=== PATIENT | male | born 1955 | race African-American/Black ===

== ENCOUNTER 2021-08-11 17:05 | Outpatient (CLI) | payer MEDICARE, MEDICAID, SELFPAY ==
--- NOTE | ~2021-08-11 | XR_ITS ---
EXAMINATION: XR chest 2V DATE: 08/11/2021 17:26 INDICATION: Cough. TECHNIQUE: PA and lateral views of the chest were obtained. COMPARISON: Chest radiograph dated 01/27/2006 FINDINGS: Lungs are clear with no focal airspace opacities, pulmonary edema, pleural effusion or pneumothorax. Mild cardiomegaly. Stenting of the tortuous descending thoracic aorta beginning at the arch and exten ding to just above the thoracic hiatus. IMPRESSION: 1. No acute cardiopulmonary disease. 2. Cardiac megaly. 3. Stenting of the tendon thoracic aorta. Reviewed, dictated and finalized at location A.
== END 2021-08-11 17:06 | disposition home or self-care (01) ==
LOC: ANHLAB 17:10
PROVIDERS: PCP Family Medicine; Visit Provider Family Medicine
DX: R05 Cough (principal); Z86.16 Personal history of COVID-19; I51.7 Cardiomegaly; Z95.5 Presence of coronary angioplasty implant and graft
CPT/HCPCS: 71046

== ENCOUNTER 2021-08-20 14:00 | Outpatient (CLI) | payer MEDICARE, MEDICAID, SELFPAY | END 2021-08-20 14:01 | disposition home or self-care (01) | LOC: ANHLAB 14:04 | PROVIDERS: PCP Family Medicine; Visit Provider Physician Assistant | DX: R41.0 Disorientation, unspecified (principal) | CPT/HCPCS: 87086 ==

== ENCOUNTER 2021-12-07 15:46 | Outpatient (CLI) | payer MEDICARE, SELFPAY ==
[2021-12-07 16:23] LABS: Basophils Percent Auto 0.4 % (0.2-1.2); Eosinophils Absolute Auto 0.1 K/mm3 (0-0.3); Eosinophils Percent Auto 1.5 % (0-4.4); Hematocrit 31.8 % (42.0-52.0); Hemoglobin 10.3 g/dL (14.0-18.0); Immature Granulocyte Absolute 0.02 K/mm3 (0.00-0.031); Immature Granulocyte Percent A 0.3 % (0-0.5); Lymphocytes Absolute Auto 1.39 K/mm3 (0.9-3.2); Lymphocytes Percent Auto 18.5 % (18.3-44.2); Mean Corpuscular HGB Conc 32.4 g/dl (32-36); Mean Corpuscular Hemoglobin 28.1 pg (26-34); Mean Corpuscular Volume 86.9 fl (80-100); Mean Platelet Volume 10.2 fl (7.4-10.4); Monocytes Absolute Auto 0.6 K/mm3 (0.1-0.6); Monocytes Percent Auto 8.1 % (2.6-8.5); Neutrophils Absolute Auto 5.4 K/mm3 (1.3-6.7); Neutrophils Percent Auto 71.2 % (45.5-73.1); Platelet Count Result 203 k/mm3 (150-375); Red Blood Count 3.66 M/mm3 (4.6-6.20); Red Cell Distribution Width 14.1 % (11.5-14.5); White Blood Count 7.5 K/mm3 (4.5-10.0)
[2021-12-07 19:20] LABS: Hemoglobin A1C 4.5 % (<5.7)
[2021-12-07 19:28] LABS: Alanine Aminotransferase 21 U/L (4-50); Albumin Level 4.1 g/dL (3.5-5.1); Alkaline Phosphatase 153 U/L (38-126); Anion Gap 7 mmol/L (8-16); Aspartate Amino Transferase 26 U/L (17-59); Bilirubin,Total 0.4 mg/dL (0.2-1.3); Blood Urea Nitrogen 32 mg/dL (9-20); Carbon Dioxide 27 mmol/L (22-30); Chloride 105 mmol/L (98-107); Cholesterol 118 mg/dL (0-200); Estimated Glomerular Filt Rate 36; Glucose 94 mg/dL (65-110); HDL Direct 53 mg/dL; Potassium 4.7 mmol/L (3.4-5.0); Sodium 139 mmol/L (137-145); Triglycerides 68 mg/dL (<150)
[2021-12-07 19:39] LABS: LDL Cholesterol Direct 31 mg/dL
[2021-12-07 19:58] LABS: Prostate Specific Antigen 4.4 ng/mL (< OR = 4.0)
== END 2021-12-07 15:47 | disposition home or self-care (01) ==
LOC: ANHLAB 15:50
PROVIDERS: PCP Family Medicine; Visit Provider Nurse Practitioner Family
DX: I12.9 Hypertensive chronic kidney disease with stage 1 through stage 4 chronic kidney disease, or unspecified chronic kidney disease (principal); N18.9 Chronic kidney disease, unspecified; R35.0 Frequency of micturition; R73.01 Impaired fasting glucose; Z12.5 Encounter for screening for malignant neoplasm of prostate; E78.2 Mixed hyperlipidemia
CPT/HCPCS: 36415; 80053; 80061; 83036; 84153; 84443; 85025; G0103

== ENCOUNTER → 2021-12-19 00:10 | Outpatient (CLI) | payer MEDICARE, SELFPAY ==
[2021-12-19 13:20] LABS: SARS-CoV-2 RNA PCR Negative
== END ==
PROVIDERS: PCP Family Medicine; Visit Provider Surgery
DX: Z01.812 Encounter for preprocedural laboratory examination (principal); Z20.822 Contact with and (suspected) exposure to COVID-19
CPT/HCPCS: C9803; U0003; U0005

== ENCOUNTER 2021-12-22 00:59 | Day surgery (SDC) | payer MEDICARE, SELFPAY ==
--- NOTE | 2021-12-21 09:43 | PC.NURSE ---
Report to the Outpatient Waiting Room, entrance under the green pavilion located off [facility], at time _0630_ on date _12/22/21__. OR Time: _0830_. - You and your visitor will be asked a series of questions to screen for COVID 19 for your protection. - A mask is required within the hospital. - NO visitors are allowed at this time. -Preoperative COVID Testing Requirements: COVID TEST COMPLETED 12/19/21) No COVID Test needed if: (proof is required; if not received patient will have Rapid Test prior to entry) - Patient has received COVID Vaccine at least 14 days prior to procedure date or - Patient has positive COVID test result within last 90 days of surgery date. COVID Test needed if above criteria is not met If not COVID vaccinated a COVID test must be conducted within 72 hours of surgery and patient is asked to isolate self from time of testing until procedure. You will go to the [facility] for your COVID testing. The [facility] site is located at the corner of [address] [facility]. You will only be called if COVID results are positive and your surgeon may reschedule your elective surgery date. Patients may have clear liquids (water, carbonated beverages, clear teas, apple juice) until 3 hours prior to surgery with a maximum of 20 ounces. (0730 AM) - No food from midnight until time of surgery - Infants may have breast milk until 4 hours before surgery, infant formula 6 hours prior to surgery. - Children will be allowed to drink immediately following surgery. If applicable, please bring a bottle or sippy cup to assist with drinking. Juice, water, soda, and popsicles are readily available. For infants on formula, please bring formula the day of surgery. Pacifiers are allowed. Take the following medications with a SIP of water the morning of surgery: _IRBESARTAN, VERAPAMIL___ Medications to discontinue per physician N/A Date to take last dose Please no make-up, nail pashto, hairspray, perfume, deodorant, or body powder the day of surgery. No jewelry (including any body piercings) or valuables the day of surgery, leave them at home. Please take a shower or bath the night before, or the morning of, surgery with an antibacterial soap. Wear comfortable, loose fitting clothing. Children are encouraged to wear pajamas. - Jewelry must be removed prior to entering the operating room. Rings and piercings that are not removed may be cut off. - The hospital will not accept responsibility for valuables. - Please leave all valuables, including medications, at home the day of surgery. If you are going home after surgery, a licensed subway train driver must drive you home. - NO public transportation without another adult. - We recommend that an adult stay with you for 24 hours following discharge. - We also recommend that you do not drive, make important decision, drink alcoholic beverages, or take any drugs that were not prescribed by your health care provider for at least 24 hours after your discharge time. For Pediatric surgeries, we recommend two adults accompany the child home (only one inside the building at this time). Follow any additional instructions given to you from your surgeon. - ANGY SHOWER AM OF SURGERY Telephone instructions given to __PT'S DAUGHTER (YANI) and asked if any additional questions and then verbalized understanding. Patient advised to call surgeon office or pre surgery nurse liaison [phone] if any additional questions.
[2021-12-22] VITALS (22 sets, daily range): BP systolic 80–204; BP diastolic 47–100; PULSE 53–95; RESP 12–17; TEMP 36.1–36.8; O2SAT 96–100
--- NOTE | 2021-12-22 05:54 | ECG_ITS ---
Measurements Intervals [place] Rate: 72 P: 51 WI: 201 QRS: -14 QRSD: 89 T: -21 QT: 388 QTc: 427 Interpretive Statements SINUS RHYTHM VOLTAGE CRITERIA FOR LVH MINIMAL Q WAVES- HIGH LATERAL LEADS BORDERLINE ST-T WAVE ABNORMALITY- INF/LAT LEADS BORDERLINE ECG Electronically Signed On 12-22-2021 8:06:28 AUTOMOTIVE ENGINEERING TEACHER by Sami Montes De Oca D.O.
[2021-12-22] MEDS: ACETAMINOPHEN 500 MG TABLET 1000 MG PO (06:48)
[2021-12-22] MEDS: LACTATED RINGERS 1,000 ML 30 ML IV CONT ×3 (07:20→13:28)
[2021-12-22] MEDS: KETOROLAC 15 MG/ML VIAL (*BKC) IV PUSH (07:21)
[2021-12-22] MEDS: hydrALAZINE HCL 20 MG/ML VIAL 5 MG IV PUSH (07:22)
--- NOTE | 2021-12-22 07:25 | WPDHPUPDATE1 ---
History and Physical Update Update Date/Time: 12/22/21 07:25 History and Physical has been reviewed, including an updated exam of the patient. There are NO changes in the patient's condition. Risks, benefits, and alternatives have been discussed and questions answered. Patient agrees to proceed with procedure.
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
[2021-12-22 07:37] LABS: Partial Thromboplastin Time 39.1 SECONDS (22.3-36.8)
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
[2021-12-22] MEDS: ceFAZolin 2 GM/D5W 50 ML 2 GM/50 ML BAG IVPB (08:26)
[2021-12-22] MEDS: BUPIVACAINE/EPINEPHRINE 0.5% 30 ML VIAL INFILTRATE (09:24)
--- NOTE | 2021-12-22 12:07 | W.PM.PROC2 ---
Procedure Note - Detailed Date of Procedure 12/22/21 Pre-op Diagnosis right inguinal hernia, ventral hernia Post-op Diagnosis other (Incarcerated ventral hernia, Reducible indirect right inguinal hernia) Procedure Performed 1. Open incarcerated ventral hernia repair with Ventralex ST Hernia Patch 2. Laparoscopic right inguinal hernia repair with 3DMax Mid mesh, da Pippa assisted Surgeon Abilio Soares, DO Anesthesia general and local (0.5% bupivacaine with epinephrine) Indications this is a 66-year-old man who presents with a right groin bulge that has progressively enlarged over the last couple years. He was also found to have a bulge at his umbilicus on exam. He has a large right inguinal hernia extending down into his scrotum and this appears to be containing bowel. It is reducible with manual palpation with the patient lying down. Discussions were made with the patient about treatment options and decision was made to proceed with open ventral hernia repair with mesh and laparoscopic right inguinal hernia repair with mesh, de Pippa assisted. Findings The laparoscopic portion of the procedure was completed 1st. I inspected the abdomen laparoscopically through a left upper quadrant incision. The patient was found to have an incarcerated ventral hernia right near the umbilicus. There is actually 2 hernias in this location both containing omentum. There was a 1 cm hernia right at the umbilicus incarcerated with omentum and another 1 cm ventral hernia just superior to the umbilicus containing omentum. The omentum had to be reduced laparoscopically before placing the periumbilical port. I placed the supraumbilical port right through the supraumbilical ventral hernia. A large right indirect inguinal hernia was identified. There is a very large hernia sac extending all the way into the scrotum. I reduced most of the hernia sac but the hernia sac was very thin and tore very easily with traction. A robotic transabdominal preperitoneal approach was utilized. Once the peritoneum was dissected far enough posteriorly, I then placed a large right Bard 3DMax mid mesh. The mesh was secured using 3-0 Vicryl simple interrupted sutures at Romero's ligament, the superior medial edge, and superior lateral edge. Once I closed the peritoneum, there did still appear to be a large hole in the peritoneum where the hernia sac was dissected. This hole was also closed using a 3-0 V lock running absorbable suture. After completing the laparoscopic portion, I then made a 5 cm curvilinear incision just superior to the umbilicus. The ventral and umbilical hernias were only by about a 5 mm rim of fascia. This fascia was transected with electrocautery so that I could place a wide enough mesh to overlap both hernias. I then placed a [address] hernia patch. This was secured at the 4 corners using 0 Ethibond U-stitch trans fascial sutures. The fascia was then closed vertically over the mesh using 0 Ethibond [id number] sutures. The hernia sac was sent to the lab for pathology. Description of Procedure Procedure as well as risks, benefits, and alternatives were discussed with the patient. Written consent was obtained and placed in chart prior to procedure. Patient was brought back to surgical suite. He was placed supine on operating table. Time-out was done to confirm patient and procedure. he was then intubated by Anesthesia Department. his abdomen was prepped and draped in sterile fashion using chlorhexidine prep. 0.5% bupivacaine with epinephrine was infiltrated at each location for incision. An 8 mm incision was made in the left lateral abdomen, and a 5 mm Optiview trocar was advanced through the abdominal layers under direct visualization. Once inside the abdominal cavity, carbon dioxide insufflation was used to create a pneumoperitoneum. A camera was inserted and the abdominal cavity was inspected. The patient was placed in slight Trendelenbu
--- NOTE | 2021-12-22 18:13 | SUR.PHASEII ---
DR PETTIT ORDERED PT TO GO HOME WITH RADHA AND HIS OFFICE WILL CALL TUESDAY TO HAVE IT REMOVED AT OFFICE.
--- NOTE | 2021-12-22 18:15 | SUR.PHASEII ---
1600, BLADDERSCAN >100ML. BLADDER SCANNED AT 1730 = 141ML
== END 2021-12-22 18:20 | disposition home or self-care (01) ==
PROVIDERS: Anesthesiology; PCP Family Medicine; Visit Provider Surgery
PROC: 8E0Y4CZ Robotic Assisted Procedure of Lower Extremity, Percutaneous Endoscopic Approach (ICD-10-PCS; CPT 49650; principal; 2021-12-22 08:30)
PROC: 0WQF0ZZ Repair Abdominal Wall, Open Approach (ICD-10-PCS; CPT 49650; 2021-12-22 08:30)
DX: K40.90 Unilateral inguinal hernia, without obstruction or gangrene, not specified as recurrent (principal); K43.6 Other and unspecified ventral hernia with obstruction, without gangrene; I12.9 Hypertensive chronic kidney disease with stage 1 through stage 4 chronic kidney disease, or unspecified chronic kidney disease; N18.9 Chronic kidney disease, unspecified; G40.909 Epilepsy, unspecified, not intractable, without status epilepticus; Z87.11 Personal history of peptic ulcer disease; Z86.73 Personal history of transient ischemic attack (TIA), and cerebral infarction without residual deficits; Z79.82 Long term (current) use of aspirin; Z87.891 Personal history of nicotine dependence
CPT/HCPCS: 49650; 49561; 49568; S2900; 36415; 85610; 85730; 86850; 86900; 86901; 88302; 93005; A9270; C1781; C9803; J0360; J0690; J1170; J1885; J2250; J2405; J2704; J2710; J3010; J7030; J7120; U0003; U0005

== ENCOUNTER 2021-12-26 11:57 | Inpatient (IN) | payer MEDICARE, SELFPAY ==
[2021-12-26] VITALS (33 sets, daily range): BP systolic 141–201; BP diastolic 77–117; PULSE 89–108; RESP 12–21; TEMP 36.7–37; O2SAT 92–100; BMI 29.0
--- NOTE | ~2021-12-26 | XR_ITS ---
EXAMINATION: XR abdomen NG/feed tube insert EXAM DATE: 12/26/2021 16:34 INDICATION: Nasogastric tube placement. Hernia surgery 2 days ago. TECHNIQUE: Frontal projection(s) of the abdomen for interpretation. There is no prior study for amrit kumar. FINDINGS: Feeding tube tip and side-port project over left upper quadrant, expected location. There are multiple loops of air-filled and dilated small bowel, small bowel obstruction versus postoperativ e ileus. Stented thoracic aorta. No evidence of free intraperitoneal gas on this upright projection. IMPRESSION: 1. Feeding tube in position. 2. Severely distended air-filled jejunum, obstruction versus postoperative ileus. Reviewed, dictated and finalized at location G. LE HOME MECHANIC IMPRESSION: 1. Feeding tube in position. 2. Severely distended air-filled jejunum, obstruction versus postoperative ile us.
--- NOTE | ~2021-12-26 | XR_ITS ---
EXAMINATION: XR abdomen obstructive series EXAM DATE: 12/29/2021 09:37 INDICATION: Small bowel obstruction, recent double hernia surgery. Follow-up. TECHNIQUE: Frontal upright projection of the upper abdomen, frontal projection of the lower abdomen f or interpretation. Comparison is made to prior examination from 12/28/2021. FINDINGS: Significant improvement in previously seen distended air-filled small bowel, postoperative ileus or small bowel obstruction. Small to moderate amount of colonic gas is present. Thoracic aorti c stent. No free intraperitoneal gas. IMPRESSION: Near normalization of dilated small bowel, postoperative ileus or obstruction. Reviewed, dictated and finalized at location B. BONDER
--- NOTE | ~2021-12-26 | XR_ITS ---
XR abdomen obstructive series 12/27/2021 08:14 Indication: Follow-up ileus versus partial small bowel obstruction Procedure: Supine and upright views of abdomen Comparison: 12/26/2021 Findings: NG tube in the stomach. There is an endovascular stent in the thoracic aorta. There is dila angel small bowel which may represent ileus or partial obstruction. There is gas in the colon. No free air. Impression: 1: Stable dilated small bowel in the upper abdomen which may represent ileus or partial obstruction. Reviewed, dictated and finalized at location A. [employer] SAL[employer] EXECUTIVE Impression: 1: Stable dilated small bowel in the upper abdomen which may represent ileus or partial obstruction.
--- NOTE | ~2021-12-26 | CT_ITS ---
EXAMINATION: CT abdomen pelvis wo con DATE: 12/26/2021 13:17 INDICATION: Hernia surgery 2 days ago. TECHNIQUE: Computed tomography (CT) of the abdomen and pelvis was performed without intravenous contr ast. The dose-length product was 1145.69 mGy-cm. Automated exposure control and iterative reconstruct ion technique were employed. COMPARISON: CT dated 10/03/2007. FINDINGS: Lung bases are unremarkable. There is a pericardial effusion. No significant pleural effusi on. There is extensive subcutaneous edema anterior abdominal wall with subcutaneous gas, consistent w ith recent surgery. Trace free fluid and free air in the abdomen also likely postoperative. There is fluid-filled and gas-filled distention of the stomach and small bowel, likely ileus. There is fluid a nd stranding in the right inguinal canal, consistent with hernia. Mild osteoarthritis of the hips. Th ere is a lower thoracic aortic endovascular stent. There is a suprarenal abdominal aortic aneurysm me asuring 5.6 x 5.2 cm. There is bilateral renal atrophy. There is a left renal cyst. There is a liver cyst. There is splenic calcified granulomas. There is a left adrenal adenoma measuring 2.8 cm. There is a Gonzalez catheter in the bladder. IMPRESSION: 1. Significantly distended fluid-filled stomach and small bowel, most likely ileus versus partial obs truction. No definite transition site. 2: Right inguinal hernia containing fluid and fat. 3: Postoperative changes in the anterior abdominal wall and abdomen. 4: Suprarenal abdominal aortic aneurysm measuring 5.6 x 5.2 cm with endovascular stent in the lower t horacic aorta. Reviewed, dictated and finalized at location A. E RIDER IMPRESSION: 1. Significantly distended fluid-filled stomach and small bowel, most likely il eus versus partial obstruction. No definite transition site. 2: Right inguinal hernia containing fluid and fat. 3: Postoperative changes in the anterior abdominal wall and abdomen. 4: Suprarenal abdominal aortic aneurysm measuring 5.6 x 5.2 cm with endovascula r stent in the lower thoracic aorta.
--- NOTE | ~2021-12-26 | XR_ITS ---
EXAMINATION: XR abdomen NG/feed tube insert DATE: 12/28/2021 21:14 INDICATION: Nasogastric tube placement. TECHNIQUE: An upright view of the abdomen on 2 radiographs was obtained. COMPARISON: Abdomen radiographs 12/27/2021, CT abdomen and pelvis 12/26/2021 FINDINGS: The lower abdomen is excluded. There are multiple dilated loops of small bowel. There is a stent graft in descending thoracic aorta. The nasogastric tube tip is in the neck. IMPRESSION: 1. Nasogastric tube tip in the neck. 2. Dilated small bowel, consistent with small bowel obstruction. Reviewed, dictated and finalized at location E. TAL EVALUATOR
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
[2021-12-26 12:46] LABS: Basophils Percent Auto 0.2 % (0.2-1.2); Eosinophils Percent Auto 0.1 % (0-4.4); Hematocrit 26.2 % (42.0-52.0); Hemoglobin 8.4 g/dL (14.0-18.0); Immature Granulocyte Absolute 0.07 K/mm3 (0.00-0.031); Immature Granulocyte Percent A 0.6 % (0-0.5); Lymphocytes Absolute Auto 0.64 K/mm3 (0.9-3.2); Lymphocytes Percent Auto 5.2 % (18.3-44.2); Mean Corpuscular HGB Conc 32.1 g/dl (32-36); Mean Corpuscular Hemoglobin 28.5 pg (26-34); Mean Corpuscular Volume 88.8 fl (80-100); Mean Platelet Volume 10.2 fl (7.4-10.4); Monocytes Absolute Auto 0.9 K/mm3 (0.1-0.6); Monocytes Percent Auto 7.6 % (2.6-8.5); Neutrophils Absolute Auto 10.6 K/mm3 (1.3-6.7); Neutrophils Percent Auto 86.3 % (45.5-73.1); Platelet Count Result 283 k/mm3 (150-375); Red Blood Count 2.95 M/mm3 (4.6-6.20); Red Cell Distribution Width 13.6 % (11.5-14.5); White Blood Count 12.3 K/mm3 (4.5-10.0)
[2021-12-26 12:54] LABS: Lactic Acid Reflex 1.2 mmol/L (0.7-2.1)
[2021-12-26 12:55] LABS: Alanine Aminotransferase 13 U/L (4-50); Alkaline Phosphatase 129 U/L (38-126); Anion Gap 7 mmol/L (8-16); Aspartate Amino Transferase 27 U/L (17-59); Blood Urea Nitrogen 52 mg/dL (9-20); Calcium 9.4 mg/dL (8.4-10.2); Carbon Dioxide 30 mmol/L (22-30); Chloride 99 mmol/L (98-107); Estimated CRCL calculation 26 ml/min; Estimated Glomerular Filt Rate 24; Glucose 154 mg/dL (65-110); Lipase 73 U/L (23-300); Potassium 4.1 mmol/L (3.4-5.0); Sodium 136 mmol/L (137-145)
[2021-12-26] MEDS: LACTATED RINGERS 1,000 ML 999 ML IV CONT (12:58)
[2021-12-26] MEDS: ONDANSETRON INJ 4 MG/2 ML VIAL IV PUSH (12:59)
[2021-12-26] MEDS: PROMETHAZINE HCL 25 MG/ML AMPUL 12.5 MG IV PUSH (13:42)
[2021-12-26] MEDS: SODIUM CHLORIDE 0.9% IV 50 ML 150 ML (13:47)
--- NOTE | 2021-12-26 14:23 | ECG_ITS ---
Measurements Intervals [place] Rate: 99 P: 40 [place]: 169 QRS: 6 QRSD: 93 T: 52 QT: 337 QTc: 434 Interpretive Statements SINUS RHYTHM NORMAL ECG Electronically Signed On 12-26-2021 18:13:49 CORE DRILLER by Sami Montes De Oca D.O.
--- NOTE | 2021-12-26 15:18 | PC.NURSE ---
Dr Cannon here to assess patient
[2021-12-26] MEDS: LACTATED RINGERS 1,000 ML 125 ML IV CONT ×2 (15:45→22:07)
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
[2021-12-26 16:35] LABS: SARS-CoV-2 RNA PCR Negative
[2021-12-26 16:43] LABS: Add Urine Microscopic? YES; Appearance Urine Clear (Clear); Bilirubin Urine Negative (Negative); Blood Urine 2+ (Negative); Color Urine Amber (Yellow); Glucose Urine UA Negative (Negative); Ketones Urine Negative (Negative); Leukocyte Esterase Ur Negative LEU/UL (Negative); Mucus Urine Few /lpf; Nitrate Urine Negative (Negative); Protein Urine 3+ mg/dL (Negative); RBC Urine 21-50 /hpf (0-2); Specific Grav Ur 1.024 (1.001-1.035); Squamous Epithelial Cell Urine Occasional /hpf (Few); Urobilinogen Urine Negative mg/dL (<2.0)
--- NOTE | 2021-12-26 18:05 | ADMGEN ---
This patient, Ulices Willingham Jr., was admitted to [facility] Surg Room 316-01. Patient/family oriented to hospital policies and general routines including ID bracelet, bed and alarms, visiting hours, pain management, procedures, bathroom and other care routines, personal items, smoking policy, room service/diet, and visiting hours. Information on how to activate the Rapid Response Team has been discussed. Patient/Family are encouraged to report perceived risks to care and to ask questions if they do not understand what they are told or what they should do.
[2021-12-27] VITALS (12 sets, daily range): BP systolic 161–178; BP diastolic 78–87; PULSE 84–95; RESP 14–20; TEMP 36.4–37.7; O2SAT 92–100
[2021-12-27 00:01] LABS: Hematocrit 23.4 % (42.0-52.0); Hemoglobin 7.6 g/dL (14.0-18.0)
[2021-12-27 00:11] LABS: Anion Gap 3 mmol/L (8-16); Blood Urea Nitrogen 54 mg/dL (9-20); Calcium 8.8 mg/dL (8.4-10.2); Carbon Dioxide 34 mmol/L (22-30); Chloride 101 mmol/L (98-107); Estimated CRCL calculation 25 ml/min; Estimated Glomerular Filt Rate 27; Glucose 113 mg/dL (65-110); Potassium 3.9 mmol/L (3.4-5.0); Sodium 138 mmol/L (137-145)
[2021-12-27] MEDS: PANTOPRAZOLE SODIUM IV 40 MG VIAL IV PUSH ×3 (01:31→22:25)
[2021-12-27 01:40] LABS: Folic Acid 10.7 ng/mL (2.76->20)
[2021-12-27] MEDS: LACTATED RINGERS 1,000 ML 125 ML IV CONT (05:19)
[2021-12-27 06:49] LABS: Basophils Percent Auto 0.3 % (0.2-1.2); Eosinophils Absolute Auto 0.1 K/mm3 (0-0.3); Eosinophils Percent Auto 1.6 % (0-4.4); Hematocrit 22.7 % (42.0-52.0); Hemoglobin 7.2 g/dL (14.0-18.0); Immature Granulocyte Absolute 0.04 K/mm3 (0.00-0.031); Immature Granulocyte Percent A 0.6 % (0-0.5); Lymphocytes Absolute Auto 0.66 K/mm3 (0.9-3.2); Lymphocytes Percent Auto 9.4 % (18.3-44.2); Mean Corpuscular HGB Conc 31.7 g/dl (32-36); Mean Corpuscular Hemoglobin 28.3 pg (26-34); Mean Corpuscular Volume 89.4 fl (80-100); Monocytes Absolute Auto 0.8 K/mm3 (0.1-0.6); Monocytes Percent Auto 11.7 % (2.6-8.5); Neutrophils Absolute Auto 5.4 K/mm3 (1.3-6.7); Neutrophils Percent Auto 76.4 % (45.5-73.1); Platelet Count Result 184 k/mm3 (150-375); Red Blood Count 2.54 M/mm3 (4.6-6.20); Red Cell Distribution Width 13.8 % (11.5-14.5)
[2021-12-27 07:09] LABS: Alanine Aminotransferase 10 U/L (4-50); Albumin Level 3.2 g/dL (3.5-5.1); Alkaline Phosphatase 92 U/L (38-126); Anion Gap 5 mmol/L (8-16); Aspartate Amino Transferase 19 U/L (17-59); Blood Urea Nitrogen 54 mg/dL (9-20); Calcium 8.5 mg/dL (8.4-10.2); Carbon Dioxide 32 mmol/L (22-30); Chloride 103 mmol/L (98-107); Estimated CRCL calculation 27 ml/min; Estimated Glomerular Filt Rate 30; Glucose 103 mg/dL (65-110); Magnesium 2.3 mg/dL (1.6-2.3); Potassium 3.7 mmol/L (3.4-5.0); Sodium 140 mmol/L (137-145)
[2021-12-27 07:17] LABS: Iron 21 ug/dL (49-181)
[2021-12-27 07:27] LABS: Percent Iron Saturation 11 % (20-50)
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
[2021-12-27] MEDS: hydrALAZINE HCL 20 MG/ML VIAL 10 MG IV PUSH ×2 (09:12→16:01)
--- NOTE | 2021-12-27 09:30 | PM.IMPN ---
Progress Note: A&P Assessment and Plan (1) Partial small bowel obstruction: Code(s): K56.600 - Partial intestinal obstruction, unspecified as to cause Status: Acute Assessment and Plan: Partial small-bowel obstruction versus ileus. Nearly 1.5 L of fluid was yielded upon insertion of the NG tube. Management per primary service. (2) Normocytic anemia: Code(s): D64.9 - Anemia, unspecified Status: Acute Assessment and Plan: Hemoglobin is nearly 2 g lower than what it was last week. Check iron studies, gastric fluid for occult blood, and trend H&H. given history of peptic ulcers, will start IV Protonix b.i.d. (3) Acute on chronic kidney failure: Code(s): N17.9 - Acute kidney failure, unspecified; N18.9 - Chronic kidney disease, unspecified Status: Acute Assessment and Plan: Secondary to dehydration from poor intake and vomiting. He is being cautiously hydrated with close monitoring of volume status. (4) Hypertension: Code(s): I10 - Essential (primary) hypertension Status: Chronic Assessment and Plan: Blood pressures were reviewed and they have been running in the 180s to 190 systolic, likely due to pain. They have improved quite a bit since the NG tube was inserted. As he is NPO will add hydralazine p.r.n. Additional Plan 12/27/2021 . Hemoglobin dropped from 8.6 to 7.2. Will transfuse 2 units. Blood pressure is stable on current medication. Will continue to monitor hemoglobin electrolytes and blood pressure Surgery evaluation noted.. Subjective Date/time seen: 12/27/21 09:30 Patient was seen during the morning rounds today. NG tube has blood tinged secretion. Mild abdominal pain. No shortness of or chest pain Review of Systems Review of Systems: All systems reviewed & are unremarkable except as noted in HPI and below (the history and physical examination.) Exam Narrative: General: Moderately ill-appearing gentleman in the semi-Don position. Weight: 94.5 kg. BMI: 29.1. HEENT: PERRL, EOMI. Sclerae anicteric. Conjunctiva mildly injected. NG tube in the right naris draining opaque, greenish-brown fluid. Tacky mucous membranes. Neck: Supple. Respiratory: Lungs are clear to auscultation bilaterally. Cardiovascular: Regular rate and rhythm with S1-S2. Gastrointestinal: Abdomen is distended and tender to palpation diffusely throughout the abdomen. No voluntary guarding or rebound tenderness. Bowel sounds are quiet. Surgical incisions are well approximated without evidence of infection. NG tube connected to suction Skin: Warm and dry. No rash or lesions on limited exam. Extremities: No cyanosis, clubbing, or edema. Radial and pedal pulses intact. Neurological: Alert. Cranial nerves 2-12 grossly intact. No gross focal deficits to casual conversation. Psychiatric: Appropriate mood and affect. Objective Data Vital Signs Vital Signs: Vital Signs - 24 hr 12/26/21 12:24 12/26/21 12:33 12/26/21 12:45 Temperature 36.7 C Pulse Rate 108 H 103 H 100 Respiratory Rate 19 18 18 Blood Pressure 182/91 H Pulse Oximetry 99 98 98 12/26/21 12:46 12/26/21 13:46 12/26/21 14:13 Temperature Pulse Rate 104 H 102 H Respiratory Rate 16 15 Blood Pressure 160/106 H 141/85 H Pulse Oximetry 98 12/26/21 14:15 12/26/21 14:17 12/26/21 14:30 Temperature Pulse Rate 103 H 101 H 101 H Respiratory Rate 15 15 14 Blood Pressure 170/102 H Pulse Oximetry 12/26/21 14:31 12/26/21 14:45 12/26/21 14:46 Temperature Pulse Rate 102 H 99 99 Respiratory Rate 14 14 13 Blood Pressure 186/112 H 190/113 H Pulse Oximetry 94 12/26/21 15:00 12/26/21 15:02 12/26/21 15:15 Temperature Pulse Rate 101 H 102 H 105 H Respiratory Rate 16 19 21 H Blood Pressure 201/117 H Pulse Oximetry 100 12/26/21 15:17 12/26/21 15:30 12/26/21 15:31 Temperature Pulse Rate 107 H 102 H 101 H Respiratory Rate 19 16 16 Bloo
[2021-12-27] MEDS: SODIUM CHLORIDE 0.9% IV 250 ML 30 ML IV CONT (12:13)
[2021-12-27] MEDS: TUBING, BLOOD PLUM PUMP TUBING 1 EACH XX (12:14)
--- NOTE | 2021-12-27 16:15 | PC.NURSE ---
notified of low grade temp. Orders given for IV Tylenol. Also notified of higher B/P and need to give hydralazine. NNO given. Pt resting with NGT to LIS. Offers no complaints at this time.
[2021-12-27 16:46] LABS: Hematocrit 28.5 % (42.0-52.0); Hemoglobin 9.1 g/dL (14.0-18.0)
[2021-12-27 17:11] LABS: Gastric Negative Control Negative; Gastric Positive Control Positive; Occult Blood Gastric Fluid Positive; pH Gastric Fluid 2 (1-8)
[2021-12-27] MEDS: FUROSEMIDE INJ 40 MG/4 ML VIAL IV PUSH (22:21)
[2021-12-27] MEDS: LACTATED RINGERS 1,000 ML 85 ML IV CONT (22:34)
--- NOTE | 2021-12-27 22:56 | PM.PNGS ---
Progress Note: A&P Assessment and Plan (1) Ileus, postoperative: Onset Date: ~12/25/21 Code(s): K91.89 - Other postprocedural complications and disorders of digestive system; K56.7 - Ileus, unspecified Status: Acute Assessment and Plan: This is the main reason for the patient's readmission. May also be somewhat constipated as he states he has not had a bowel movement since surgery. A six-pack the patient went home but did move much. He also had urinary retention postoperatively and has a Gonzalez catheter in place. (2) Hypertension: Onset Date: Unknown Code(s): I10 - Essential (primary) hypertension Status: Chronic Assessment and Plan: Continue current medications (appreciate hospitalist help and converting these to IV form). (3) Acute on chronic kidney failure: Code(s): N17.9 - Acute kidney failure, unspecified; N18.9 - Chronic kidney disease, unspecified Status: Acute (4) Normocytic anemia: Code(s): D64.9 - Anemia, unspecified Status: Acute Assessment and Plan: It appears patient had a Hb. of 10 prior to his hernia surgery & has now is dropped some. Hemoccult of the gastric fluid to be sent off this afternoon.( not sent last leyla even though ordered and NG in place Still awaiting a stool for ability to do Hemoccult of the stool. (5) History of CVA (cerebrovascular accident): Onset Date: Unknown Code(s): Z86.73 - Personal history of transient ischemic attack (TIA), and cerebral infarction without residual deficits Status: Acute (6) Postoperative urinary retention: Onset Date: ~12/2000 Code(s): N99.89 - Other postprocedural complications and disorders of genitourinary system; R33.8 - Other retention of urine Status: Acute Assessment and Plan: Continue Gonzalez catheter for this and good I&O while we rehydrate him. (7) Hematuria detected by chemical testing: Code(s): R31.9 - Hematuria, unspecified Status: Acute Subjective Subjective Date/Time Seen: 12/27/21 15:56 patient resting comfortably in bed when I entered the room. NG tube still in place. Patient denied much abdominal pain. Review of Systems Review of Systems: All systems reviewed & are unremarkable except as noted in HPI and below Constitutional: Constitutional: Reports as per HPI, Denies chills and Denies fever(s) Cardiovascular: Cardiovascular: Denies chest pain and Denies dyspnea Respiratory: Respiratory: Reports no additional respiratory complaints and Denies dyspnea Gastrointestinal: Gastrointestinal: Reports as per HPI, Reports abdominal pain (minimal), Denies bloating, Reports change in bowel habits ( Patient has not had a bowel movement since surgery.) and Reports GI cramping Musculoskeletal: Musculoskeletal: Reports no additional musculoskeletal complaints Neurologic: Denies memory loss Psychiatric: Psychiatric: Denies anxiety and Denies memory loss Exam Const: General: no acute distress, alert, awake and lethargic Nutritional Appearance: obese Orientation/consciousness: oriented to person, oriented to place and oriented to time Resp: Auscultation: clear to auscultation bilaterally GI: Inspection: incision (clean and dry with surgical glue in place) GI Palp: Yes Soft to palpation, No Tenderness to palpation present (GI) and Yes Other GI palpation findings present (rounded) Other: No bulging or significant tenderness in the right groin. Objective Data Vital Signs Vital Signs: Vital Signs - 24 hr 12/27/21 06:00 12/27/21 08:00 12/27/21 12:04 Temperature 36.4 C L 37.2 C Pulse Rate 87 87 90 Respiratory Rate 18 18 18 Blood Pressure 176/83 H 167/82 H Pulse Oximetry 99 99 95 12/27/21 12:19 12/27/21 13:19 12/27/21 14:00 Temperature 36.8 C 37.3 C 36.7 C Pulse Rate 88 90 87 Respiratory Rate 18 20 14 Blood Pressure 161/80 H 162/80 H 171/81 H Pulse Oximetry 97 96 93 12/27/21 14:19
[2021-12-27 23:49] LABS: Hemoglobin 9.3 g/dL (14.0-18.0)
[2021-12-28] MEDS: MAGNESIUM HYDROXIDE SUSP 30 ML UDC FEED TUBE (01:27)
[2021-12-28 05:29] VITALS: BP 153/88; PULSE 85; RESP 16; TEMP 36.8; O2SAT 97
[2021-12-28 06:56] LABS: Hematocrit 28.2 % (42.0-52.0); Hemoglobin 9.4 g/dL (14.0-18.0); Mean Corpuscular HGB Conc 33.3 g/dl (32-36); Mean Corpuscular Hemoglobin 28.7 pg (26-34); Mean Corpuscular Volume 86.2 fl (80-100); Mean Platelet Volume 10.2 fl (7.4-10.4); Platelet Count Result 187 k/mm3 (150-375); Red Blood Count 3.27 M/mm3 (4.6-6.20); Red Cell Distribution Width 13.6 % (11.5-14.5); White Blood Count 8.6 K/mm3 (4.5-10.0)
[2021-12-28 07:09] LABS: Alanine Aminotransferase 12 U/L (4-50); Albumin Level 3.3 g/dL (3.5-5.1); Alkaline Phosphatase 92 U/L (38-126); Anion Gap 7 mmol/L (8-16); Aspartate Amino Transferase 34 U/L (17-59); Bilirubin,Total 1.9 mg/dL (0.2-1.3); Blood Urea Nitrogen 51 mg/dL (9-20); Calcium 8.3 mg/dL (8.4-10.2); Carbon Dioxide 31 mmol/L (22-30); Chloride 103 mmol/L (98-107); Estimated CRCL calculation 30 ml/min; Estimated Glomerular Filt Rate 34; Glucose 101 mg/dL (65-110); Potassium 3.6 mmol/L (3.4-5.0); Sodium 141 mmol/L (137-145)
[2021-12-28] MEDS: PANTOPRAZOLE SODIUM IV 40 MG VIAL IV PUSH ×2 (09:02→20:19)
[2021-12-28] MEDS: LACTATED RINGERS 1,000 ML 60 ML IV CONT ×2 (09:02→21:27)
--- NOTE | 2021-12-28 10:24 | PM.IMPN ---
Progress Note: A&P Assessment and Plan (1) Partial small bowel obstruction: Code(s): K56.600 - Partial intestinal obstruction, unspecified as to cause Status: Acute Assessment and Plan: Partial small-bowel obstruction versus ileus. Nearly 1.5 L of fluid was yielded upon insertion of the NG tube. Management per primary General surgery (2) Normocytic anemia: Onset Date: Unknown Code(s): D64.9 - Anemia, unspecified Status: Acute Assessment and Plan: Hemoglobin is nearly 2 g lower than what it was last week. hemoglobin went as low to 7.2 yesterday and he was given 2 units of PRBCs. His gastric occult blood was positive. We are pending a stool occult blood testing. B12 and folic acid were normal. % saturation was low at 11%, ferritin was elevated to 184. Appears to be anemia of chronic disease which could be related to his kidney dysfunction but with a low % saturation he could be slightly iron deficient as well. continue PPI twice daily. Continue monitoring H&H given the 2 units today. If he continues to trend down may need to get GI Consultation. (3) Acute on chronic kidney failure: Code(s): N17.9 - Acute kidney failure, unspecified; N18.9 - Chronic kidney disease, unspecified Status: Acute Assessment and Plan: Secondary to dehydration from poor intake and vomiting. Creatinine is 2.3 today and his creatinine that was checked on November showed a creatinine at 2.2. He may be close to his baseline at this time. He is being cautiously hydrated with close monitoring of volume status. (4) Hypertension: Onset Date: Unknown Code(s): I10 - Essential (primary) hypertension Status: Chronic Assessment and Plan: Blood pressures 170-150 on review. We ordered IV Hydralazine as needed for systolic >165 or diastolic >100 Continue monitoring while NG in place. Time Spent With Patient Time with patient: 25 - 35 minutes Subjective Date/time seen: 12/28/21 10:24 Interval history: date of service 12/28/2021: patient reports feeling slightly better today. He is passing minimal gas. He has not had a bowel movement. He does report any abdominal pain at this time. Denies nausea or vomiting. denies any chest pain, shortness of breath, cough, leg swelling, calf pain, or any other symptoms at this time. Review of Systems Review of Systems: All systems reviewed & are unremarkable except as noted in HPI and below (the history and physical examination.) Exam Narrative: General: 66 year-old man laying flat in bed with NG tube in place suctioning green/ brown material out of his NG. Appears comfortable. In no acute distress. Skin: No jaundice or cyanosis. Good skin turgor. Neck: Supple. Respiratory: Lungs are clear to auscultation bilaterally. No bony chest wall tenderness. Cardiovascular: The heart has a regular rate and rhythm without murmur. Lower extremities: No lower extremity edema. Distal pulses are easily palpated. No calf tenderness to palpation. Gastrointestinal: Diminished bowel sounds auscultated. The abdomen is tender to palpation, distended. Psychiatric: Lucid and oriented. Memory intact. Neurologic: No focal deficits. Speech is clear. No facial drooping. Objective Data Vital Signs Vital Signs: Vital Signs - 24 hr 12/27/21 12:04 12/27/21 12:19 12/27/21 13:19 Temperature 98.9 F 98.2 F 99.1 F Pulse Rate 90 88 90 Respiratory Rate 18 18 20 Blood Pressure 167/82 H 161/80 H 162/80 H Pulse Oximetry 95 97 96 12/27/21 14:00 12/27/21 14:19 12/27/21 18:02 Temperature 98.0 F 99.1 F 99.4 F Pulse Rate 87 88 93 Respiratory Rate 14 18 20 Blood Pressure 171/81 H 178/80 H 170/87 H Pulse Oximetry 93 98 92 12/27/21 18:20 12/27/21 19:20 12/27/21 21:39 Temperature 99.8 F H 99.1 F 99.8 F H Pulse Rate 95 87 84 Respiratory Rate 20 20 17 Blood Pressure 167/84 H 172/78 H 176/82 H Pulse Oximetry 98 100 96
--- NOTE | 2021-12-28 11:55 | PM.PNGS ---
Progress Note: A&P Assessment and Plan (1) Ileus, postoperative: Onset Date: ~12/25/21 Code(s): K91.89 - Other postprocedural complications and disorders of digestive system; K56.7 - Ileus, unspecified Status: Acute Assessment and Plan: Slowly showing signs of improvement. Will give dulcolax suppository today. NG out once bowels are moving. (2) Postoperative urinary retention: Onset Date: ~12/2000 Code(s): N99.89 - Other postprocedural complications and disorders of genitourinary system; R33.8 - Other retention of urine Status: Acute Assessment and Plan: Remove Gonzalez today (3) Acute on chronic kidney failure: Code(s): N17.9 - Acute kidney failure, unspecified; N18.9 - Chronic kidney disease, unspecified Status: Acute (4) Normocytic anemia: Onset Date: Unknown Code(s): D64.9 - Anemia, unspecified Status: Acute Assessment and Plan: No sign of internal bleeding on CT and minimal blood loss with surgery. Likely mostly chronic. Ruling out other sources of acute bleeding. Subjective Subjective Date/Time Seen: 12/28/21 11:55 Interval history: Passing flatus. Wants Gonzalez removed. No significant abdominal tenderness. Not ambulating much yet. Exam GI: Inspection: non-distended and incision (intact with glue) GI Palp: Yes Soft to palpation, No Tenderness to palpation present (GI) and No Guarding due to palpation present (GI) Auscultation: normal bowel sounds Objective Data Vital Signs Vital Signs: Vital Signs - 24 hr 12/27/21 12:04 12/27/21 12:19 12/27/21 13:19 Temperature 37.2 C 36.8 C 37.3 C Pulse Rate 90 88 90 Respiratory Rate 18 18 20 Blood Pressure 167/82 H 161/80 H 162/80 H Pulse Oximetry 95 97 96 12/27/21 14:00 12/27/21 14:19 12/27/21 18:02 Temperature 36.7 C 37.3 C 37.4 C Pulse Rate 87 88 93 Respiratory Rate 14 18 20 Blood Pressure 171/81 H 178/80 H 170/87 H Pulse Oximetry 93 98 92 12/27/21 18:20 12/27/21 19:20 12/27/21 21:39 Temperature 37.7 C H 37.3 C 37.7 C H Pulse Rate 95 87 84 Respiratory Rate 20 20 17 Blood Pressure 167/84 H 172/78 H 176/82 H Pulse Oximetry 98 100 96 12/27/21 21:50 12/28/21 05:29 Temperature 36.8 C Pulse Rate 91 85 Respiratory Rate 16 Blood Pressure 153/88 H Pulse Oximetry 94 97 Intake/Output Intake/Output: Intake & Output 12/25/21 12/26/21 12/27/21 12/28/21 23:59 23:59 23:59 23:59 Intake Total 2050 2700 1000 Output Total 2400 2150 1875 Balance -350 550 -875 Meds/Results Medications: Active Medications Generic Name Dose Route Start Last Admin Trade Name Freq PRN Reason Stop Dose Admin Benzocaine 1 lozenge 12/27/21 23:35 Benzocaine/Menthol (*Bkc) 18 Ea Lozenge PO PRN PRN Sore Throat Bisacodyl 10 mg 12/27/21 23:35 Bisacodyl 10 Mg Suppository RECTAL QAM PRN Constipation Bisacodyl 10 mg 12/28/21 11:53 Bisacodyl 10 Mg Suppository RECTAL 12/28/21 11:54 ONCE ONE Hydralazine HCl 10 mg 12/26/21 23:32 12/27/21 16:01 Hydralazine Hcl 20 Mg/Ml Vial IV PUSH 10 mg Q6H PRN Administration SBP > 165 or DBP > 105 Hydromorphone HCl 0.5 mg 12/26/21 15:06 Hydromorphone Hcl Inj (*Crx) 1 Mg/Ml Syr IV PUSH Q4H PRN Pain Rated 7-10 Lactated Ringer's 1,000 mls @ 60 mls/hr 12/26/21 15:10 12/28/21 09:02 Lr - Lactated Ringers Iv IV CONT 60 mls/hr .[id number] GEM Administration Ondansetron HCl 4 mg 12/26/21 15:06 Ondansetron Inj 4 Mg/2 Ml Vial IV PUSH Q4H PRN Nausea Pantoprazole Sodium 40 mg 12/26/21 23:35 12/28/21 09:02 Pantoprazole Sodium Iv 40 Mg Vial IV PUSH 40 mg Q12HR GEM Administration Radiology Results: ITS Impressions Abdomen/Pelvis CT 12/26/21 13:37 IMPRESSION: 1. Significantly distended fluid-filled stomach and small bowel, most likely ileus versus partial obstruction. No definite transition site. 2: Right inguinal hernia containing fluid and fa
[2021-12-28 13:03] VITALS: BMI 29.4
[2021-12-28 14:00] VITALS: BP 183/91; PULSE 112; RESP 20; TEMP 36.7; O2SAT 95
[2021-12-28] MEDS: hydrALAZINE HCL 20 MG/ML VIAL 10 MG IV PUSH (14:06)
--- NOTE | 2021-12-28 21:41 | PC.NURSE ---
Was assisting patient to walk to the bathroom and noticed patient pulling on NG tube. NG tube seemed to not be in place. Called Dr. Lyman and she stated to order chest xray. Chest xray showed NG tube coiled in throat. I removed NG tube and called Dr. Lyman again. She stated to order KUB for the morning, leave patient NPO and to leave NG tube out for now unless patient has nausea or pain. Patient has nbo signs or symptoms of distress.
[2021-12-28 22:00] VITALS: BP 171/73; PULSE 97; RESP 18; TEMP 37.1; O2SAT 98
[2021-12-29 04:59] LABS: IFOB Positive Control Positive; Immunochemical Fecal Occult Bl Negative (N)
[2021-12-29 05:40] VITALS: BP 160/83; PULSE 83; RESP 18; TEMP 36.9; O2SAT 96
[2021-12-29 07:33] LABS: Hematocrit 27.2 % (42.0-52.0); Hemoglobin 8.9 g/dL (14.0-18.0); Mean Corpuscular HGB Conc 32.7 g/dl (32-36); Mean Corpuscular Hemoglobin 28.7 pg (26-34); Mean Corpuscular Volume 87.7 fl (80-100); Mean Platelet Volume 10.7 fl (7.4-10.4); Platelet Count Result 198 k/mm3 (150-375); Red Cell Distribution Width 14.3 % (11.5-14.5); White Blood Count 9.1 K/mm3 (4.5-10.0)
[2021-12-29 07:46] LABS: Alanine Aminotransferase 10 U/L (4-50); Albumin Level 3.1 g/dL (3.5-5.1); Alkaline Phosphatase 93 U/L (38-126); Anion Gap 3 mmol/L (8-16); Aspartate Amino Transferase 23 U/L (17-59); Bilirubin,Total 2.6 mg/dL (0.2-1.3); Blood Urea Nitrogen 47 mg/dL (9-20); Calcium 8.4 mg/dL (8.4-10.2); Carbon Dioxide 31 mmol/L (22-30); Chloride 107 mmol/L (98-107); Estimated CRCL calculation 33 ml/min; Estimated Glomerular Filt Rate 38; Glucose 102 mg/dL (65-110); Magnesium 2.4 mg/dL (1.6-2.3); Potassium 3.6 mmol/L (3.4-5.0); Sodium 141 mmol/L (137-145)
--- NOTE | 2021-12-29 08:55 | PM.PNGS ---
Progress Note: A&P Assessment and Plan (1) Ileus, postoperative: Onset Date: ~12/25/21 Code(s): K91.89 - Other postprocedural complications and disorders of digestive system; K56.7 - Ileus, unspecified Status: Acute Assessment and Plan: Bowels moving. Start clear liquids and advance as tolerated. Possibly home later today or tomorrow. (2) Postoperative urinary retention: Onset Date: ~12/2000 Code(s): N99.89 - Other postprocedural complications and disorders of genitourinary system; R33.8 - Other retention of urine Status: Acute (3) Acute on chronic kidney failure: Code(s): N17.9 - Acute kidney failure, unspecified; N18.9 - Chronic kidney disease, unspecified Status: Acute Subjective Subjective Date/Time Seen: 12/29/21 08:55 Interval history: Bowels moving, urinating without difficulty. No abdominal pain or nausea. Exam GI: Inspection: non-distended and incision (intact with glue) GI Palp: Yes Soft to palpation, No Tenderness to palpation present (GI) and No Guarding due to palpation present (GI) Auscultation: normal bowel sounds Objective Data Vital Signs Vital Signs: Vital Signs - 24 hr 12/28/21 14:00 12/28/21 22:00 12/29/21 05:40 Temperature 36.7 C 37.1 C 36.9 C Pulse Rate 112 H 97 83 Respiratory Rate 20 18 18 Blood Pressure 183/91 H 171/73 H 160/83 H Pulse Oximetry 95 98 96 Intake/Output Intake/Output: Intake & Output 12/26/21 12/27/21 12/28/21 12/29/21 23:59 23:59 23:59 23:59 Intake Total 0 2700 1999 Output Total 2400 2150 2576 Balance -350 550 -576 Meds/Results Medications: Active Medications Generic Name Dose Route Start Last Admin Trade Name Freq PRN Reason Stop Dose Admin Hydrocodone Bitart/Acetaminophen 1 tab 12/29/21 08:49 Hydrocodone/Acetaminophen (*Crx) 5-325 Mg Tablet PO Q4H PRN Pain Rated 4-6 Benzocaine 1 lozenge 12/27/21 23:35 Benzocaine/Menthol (*Bkc) 18 Ea Lozenge PO PRN PRN Sore Throat Bisacodyl 10 mg 12/27/21 23:35 Bisacodyl 10 Mg Suppository RECTAL QAM PRN Constipation Hydralazine HCl 10 mg 12/26/21 23:32 12/28/21 14:06 Hydralazine Hcl 20 Mg/Ml Vial IV PUSH 10 mg Q6H PRN Administration SBP > 165 or DBP > 105 Hydromorphone HCl 0.5 mg 12/26/21 15:06 Hydromorphone Hcl Inj (*Crx) 1 Mg/Ml Syr IV PUSH Q4H PRN Pain Rated 7-10 Ondansetron HCl 4 mg 12/26/21 15:06 Ondansetron Inj 4 Mg/2 Ml Vial IV PUSH Q4H PRN Nausea Pantoprazole Sodium 40 mg 12/26/21 23:35 12/28/21 20:19 Pantoprazole Sodium Iv 40 Mg Vial IV PUSH 40 mg Q12HR GEM Administration Radiology Results: ITS Impressions Abdomen/Pelvis CT 12/26/21 13:37 IMPRESSION: 1. Significantly distended fluid-filled stomach and small bowel, most likely ileus versus partial obstruction. No definite transition site. 2: Right inguinal hernia containing fluid and fat. 3: Postoperative changes in the anterior abdominal wall and abdomen. 4: Suprarenal abdominal aortic aneurysm measuring 5.6 x 5.2 cm with endovascular stent in the lower thoracic aorta. Abdomen X-Ray 12/28/21 21:18 IMPRESSION: 1. Nasogastric tube tip in the neck. 2. Dilated small bowel, consistent with small bowel obstruction. Labs Labs: Laboratory Results - last 24 hr 12/28/21 12/29/21 12/29/21 14:40 07:06 07:06 WBC 9.1 RBC 3.10 L Hgb 8.9 L Hct 27.2 L MCV 87.7 MCH 28.7 MCHC 32.7 RDW 14.3 Plt Count 198 MPV 10.7 H Sodium 141 Potassium 3.6 Chloride 107 Carbon Dioxide 31 H Anion Gap 3 L BUN 47 H Creatinine 2.10 H Estim Creat Clear Calc 33 Estimated GFR 38 L Glucose 102 Calcium 8.4 Magnesium 2.4 H Total Bilirubin 2.6 H AST 23 ALT 10 Alkaline Phosphatase 93 Total Protein 6.0 L Albumin 3.1 L Stl Occult Blood (IFOB) Negative Quality VTE [facility]
[2021-12-29] MEDS: PANTOPRAZOLE SODIUM IV 40 MG VIAL IV PUSH ×2 (09:46→22:08)
--- NOTE | 2021-12-29 13:13 | PM.IMPN ---
Progress Note: A&P Assessment and Plan (1) Partial small bowel obstruction: Code(s): K56.600 - Partial intestinal obstruction, unspecified as to cause Status: Acute Assessment and Plan: -Partial small-bowel obstruction versus ileus. Nearly 1.5 L of fluid was yielded upon insertion of the NG tube. -Management per primary General surgery (2) Normocytic anemia: Onset Date: Unknown Code(s): D64.9 - Anemia, unspecified Status: Acute Assessment and Plan: -Hemoglobin is nearly 2 g lower than what it was last week. hemoglobin went as low to 7.2 and he was given 2 units of PRBCs. -His gastric occult blood was positive. Stool occult negative. -B12 and folic acid normal. % saturation was low at 11%, ferritin was elevated to 184. Appears to be anemia of chronic disease which could be related to his kidney dysfunction but with a low % saturation he could be slightly iron deficient as well. -continue PPI twice daily. -Continue monitoring H&H. If he continues to trend down may need to get GI Consultation, however at this time he appears to be stable at 8.9. (3) Acute on chronic kidney failure: Code(s): N17.9 - Acute kidney failure, unspecified; N18.9 - Chronic kidney disease, unspecified Status: Acute Assessment and Plan: -Secondary to dehydration from poor intake and vomiting -creat up to 3.1 on admission -Creatinine is 2.1 today and his creatinine that was checked on November showed a creatinine at 2.2. He may be close to his baseline at this time. -He is now on clear liquid diet so IVF have been discontinued (4) Hypertension: Onset Date: Unknown Code(s): I10 - Essential (primary) hypertension Status: Chronic Assessment and Plan: -Blood pressures 170-150 on review. -We ordered IV Hydralazine as needed for systolic >165 or diastolic >100 -NG removed, tolerating clears, home medications restarted Subjective Date/time seen: 12/29/21 13:13 Interval history: 66-year-old male with hypertension, stroke, chronic kidney disease, and peptic ulcers, admitted to the hospital for partial small bowel obstruction. Pt is feeling good today. Started on clear liquids earlier today. He is moving his bowels. No abd pain/N/V. Review of Systems Review of Systems: All systems reviewed & are unremarkable except as noted in HPI and below Exam Narrative: General: No acute distress, non toxic appearing Eyes: PERRL, no scleral icterus HEENT: NCAT, external ears normal, MMM Respiratory: No respiratory distress, Lungs CTA bilaterally, no wheezing Cardiovascular: RRR, no murmur Abdominal: Soft, nontender, non distended, no rebound or guarding, positive bowel sounds Musculoskeletal: Moves all 4 extremities, no edema Neurological: A/Ox3, speech normal, no facial asymmetry Skin: Warm, dry, no rashes Psychiatric: Normal affect, normal mood Objective Data Vital Signs Vital Signs: Vital Signs - 24 hr 12/28/21 14:00 12/28/21 22:00 12/29/21 05:40 Temperature 98.0 F 98.7 F 98.4 F Pulse Rate 112 H 97 83 Respiratory Rate 20 18 18 Blood Pressure 183/91 H 171/73 H 160/83 H Pulse Oximetry 95 98 96 Intake/Output Intake/Output: Intake & Output 12/26/21 12/27/21 12/28/21 12/29/21 23:59 23:59 23:59 23:59 Intake Total 0 2700 1999 Output Total 2400 2150 2576 Balance -350 550 -576 Meds/Results Medications: Active Medications Generic Name Dose Route Start Last Admin Trade Name Freq PRN Reason Stop Dose Admin Hydrocodone Bitart/Acetaminophen 1 tab 12/29/21 08:49 Hydrocodone/Acetaminophen (*Crx) 5-325 Mg Tablet PO Q4H PRN Pain Rated 4-6 Benzocaine 1 lozenge 12/27/21 23:35 Benzocaine/Menthol (*Bkc) 18 Ea Lozenge PO PRN PRN Sore Throat Bisacodyl 10 mg 12/27/21 23:35 Bisacodyl 10 Mg Suppository RECTAL QAM PRN Constipation Hydralazine HCl 10 mg 12/26/21 23:32 12/28/21
[2021-12-29 14:00] VITALS: BP 166/87; PULSE 95; RESP 16; TEMP 36.9; O2SAT 97
[2021-12-29] MEDS: hydrALAZINE HCL 20 MG/ML VIAL 10 MG IV PUSH (15:04)
--- NOTE | 2021-12-29 18:17 | PC.NURSE ---
Pt intake 100% of full liguid diet. Tolerated well. Offers no complaints. Denies nausea or abd pain. Resting with call light in reach
[2021-12-29 21:32] VITALS: BP 166/87; PULSE 95; RESP 16; TEMP 36.7; O2SAT 98
[2021-12-30] MEDS: hydrALAZINE HCL 20 MG/ML VIAL 10 MG IV PUSH (04:53)
[2021-12-30 04:59] VITALS: BP 173/96
[2021-12-30 06:00] VITALS: BP 162/80; PULSE 86; RESP 18; TEMP 36.3; O2SAT 97
[2021-12-30 06:43] LABS: Basophils Percent Auto 0.3 % (0.2-1.2); Eosinophils Absolute Auto 0.3 K/mm3 (0-0.3); Eosinophils Percent Auto 2.7 % (0-4.4); Hematocrit 27.9 % (42.0-52.0); Hemoglobin 9.1 g/dL (14.0-18.0); Immature Granulocyte Absolute 0.12 K/mm3 (0.00-0.031); Immature Granulocyte Percent A 1.1 % (0-0.5); Lymphocytes Absolute Auto 1.27 K/mm3 (0.9-3.2); Lymphocytes Percent Auto 11.6 % (18.3-44.2); Mean Corpuscular HGB Conc 32.6 g/dl (32-36); Mean Corpuscular Hemoglobin 28.9 pg (26-34); Mean Corpuscular Volume 88.6 fl (80-100); Mean Platelet Volume 10.1 fl (7.4-10.4); Monocytes Absolute Auto 0.8 K/mm3 (0.1-0.6); Neutrophils Absolute Auto 8.5 K/mm3 (1.3-6.7); Neutrophils Percent Auto 77.3 % (45.5-73.1); Platelet Count Result 201 k/mm3 (150-375); Red Blood Count 3.15 M/mm3 (4.6-6.20); Red Cell Distribution Width 14.5 % (11.5-14.5); White Blood Count 10.9 K/mm3 (4.5-10.0)
[2021-12-30 06:53] LABS: Anion Gap 6 mmol/L (8-16); Blood Urea Nitrogen 41 mg/dL (9-20); Calcium 8.2 mg/dL (8.4-10.2); Carbon Dioxide 29 mmol/L (22-30); Chloride 105 mmol/L (98-107); Estimated CRCL calculation 37 ml/min; Estimated Glomerular Filt Rate 38; Glucose 126 mg/dL (65-110); Potassium 3.6 mmol/L (3.4-5.0); Sodium 140 mmol/L (137-145)
[2021-12-30] MEDS: VERAPAMIL HCL ER 240 MG TABLET.ER PO (09:22)
[2021-12-30] MEDS: ASPIRIN 81 MG ENTERIC TABLET PO (09:22)
[2021-12-30] MEDS: IRBESARTAN 150 MG TABLET PO (09:22)
--- NOTE | 2021-12-30 09:22 | PM.DS ---
DS: Admitting Diagnosis Discharge Date 12/30/21 Admitting Diagnosis Post-operative ileus Post-operative urinary retention Acute on chronic kidney disease Normocytic anemia Hypertension DS: Discharge Diagnosis Discharge Diagnosis (1) Ileus, postoperative: Onset Date: ~12/25/21 Code(s): K91.89 - Other postprocedural complications and disorders of digestive system; K56.7 - Ileus, unspecified Status: Acute Assessment and Plan: Resolved. (2) Acute on chronic kidney failure: Code(s): N17.9 - Acute kidney failure, unspecified; N18.9 - Chronic kidney disease, unspecified Status: Acute Assessment and Plan: Creatinine was 3.1 and his previous creatinine at baseline is more around 2.2. [place] this is secondary to dehydration and poor intake and vomiting. This was treated with IV fluid hydration and monitoring. Creatinine improved and is now down closer to what is felt his baseline. Follow-up with PCP. (3) Normocytic anemia: Onset Date: Unknown Code(s): D64.9 - Anemia, unspecified Status: Acute Assessment and Plan: Drop in the patient's hemoglobin from his preoperative labs. His hemoglobin went from 10 down to 8 when he came back into the ER. No signs of internal bleeding on the CT and minimal blood loss during surgery. It is felt this is mostly chronic. H&H followed during his hospitalization and remained stable. Hemoglobin today 9.1. Follow-up with PCP. (4) Postoperative urinary retention: Onset Date: ~12/2000 Code(s): N99.89 - Other postprocedural complications and disorders of genitourinary system; R33.8 - Other retention of urine Status: Acute Assessment and Plan: For patients at home with indwelling urinary catheter for postoperative urinary retention after his elective surgery. Therefore, he returned with this when he was admitted. This was eventually removed on 12/28/2021 and he has been voiding without difficulty since. (5) Hematuria detected by chemical testing: Code(s): R31.9 - Hematuria, unspecified Status: Acute Assessment and Plan: +blood on urinalysis from 12/26/21. It appears he has had positive blood on urinalysis back in October. Would not expect this to account for his drop in hemoglobin. Follow-up with PCP for further outpatient workup. (6) Hypertension: Onset Date: Unknown Code(s): I10 - Essential (primary) hypertension Status: Chronic Assessment and Plan: Blood pressure did remain high during his hospitalization. Hospitalist was consulted and helped manage his hypertension during this stay. His home medications were restarted once he was on a diet. He also had p.r.n. hydralazine to treat his hypertension. He required 1 dose hydralazine yesterday and again today. Discussed with the hospitalist. Will have close follow-up with his primary after discharge to help improve control of his blood pressure. DS: Summary Hospital Course Reason for hospitalization: This is a 66-year-old male who had an elective outpatient open incarcerated ventral hernia repair with mesh and laparoscopic right inguinal hernia repair with mesh, de [place] assisted by Dr. Soares on 12/22/2021. On postop day 4, he began to develop abdominal pain, nausea, and vomiting. He presented to the ER the following day on 12/26/2021. CT scan of the abdomen and pelvis suggested ileus versus partial obstruction, right inguinal hernia containing fluid and fat, and other findings consistent with postoperative changes. Labs also showed a drop in his hemoglobin from 10.3 on preoperative labs in November to 8.4 on 12/26/2021. The patient was admitted to our service for postoperative ileus, acute on chronic renal failure, and anemia. Hospital Course: The postoperative ileus was treated with NG tube decompression, bowel rest, IV fluids, and analgesics. This eventually resolved and bowel function returned on 12/29/2021. NG tube was
[2021-12-30] MEDS: PANTOPRAZOLE SODIUM IV 40 MG VIAL IV PUSH (09:23)
== END 2021-12-30 12:20 | disposition home or self-care (01) | DRG 394 ==
LOC: ANHED 15:16 → ANH3MEDSUR 12-28 07:25
PROVIDERS: Internal Medicine; Physician Assistant; Admitting Provider Surgery; Emergency Provider Emergency Medicine; PCP Family Medicine; Visit Provider Nurse Practitioner Family
DX: K91.89 Other postprocedural complications and disorders of digestive system (principal); N17.9 Acute kidney failure, unspecified; K91.31 Postprocedural partial intestinal obstruction; Z20.822 Contact with and (suspected) exposure to COVID-19; D64.9 Anemia, unspecified; Z87.891 Personal history of nicotine dependence; Z86.73 Personal history of transient ischemic attack (TIA), and cerebral infarction without residual deficits; I12.9 Hypertensive chronic kidney disease with stage 1 through stage 4 chronic kidney disease, or unspecified chronic kidney disease; N18.9 Chronic kidney disease, unspecified; R31.9 Hematuria, unspecified; N99.89 Other postprocedural complications and disorders of genitourinary system; E86.0 Dehydration; R33.8 Other retention of urine; R19.5 Other fecal abnormalities; Z87.11 Personal history of peptic ulcer disease; Z79.899 Other long term (current) drug therapy; Z79.82 Long term (current) use of aspirin
CPT/HCPCS: 36415; 36430; 74019; 74176; 80048; 80053; 81001; 82271; 82274; 82607; 82728; 82746; 83540; 83550; 83605; 83690; 83735; 83986; 85014; 85018; 85025; 85027; 86850; 86900; 86901; 86920; 87086; 93005; 96361; 96374; 96375; 99285; A9270; C9113; C9803; J0131; J0360; J1940; J2405; J2550; J7050; J7120; P9016; U0003; U0005

== ENCOUNTER 2022-03-18 13:56 | Outpatient (CLI) | payer MEDICARE, SELFPAY ==
[2022-03-18 14:31] LABS: Basophils Percent Auto 0.6 % (0.2-1.2); Eosinophils Absolute Auto 0.1 K/mm3 (0-0.3); Eosinophils Percent Auto 2.1 % (0-4.4); Hematocrit 31.1 % (42.0-52.0); Hemoglobin 9.8 g/dL (14.0-18.0); Immature Granulocyte Absolute 0.03 K/mm3 (0.00-0.031); Immature Granulocyte Percent A 0.5 % (0-0.5); Lymphocytes Absolute Auto 1.48 K/mm3 (0.9-3.2); Lymphocytes Percent Auto 23.9 % (18.3-44.2); Mean Corpuscular HGB Conc 31.5 g/dl (32-36); Mean Corpuscular Hemoglobin 28.1 pg (26-34); Mean Corpuscular Volume 89.1 fl (80-100); Mean Platelet Volume 10.3 fl (7.4-10.4); Monocytes Absolute Auto 0.5 K/mm3 (0.1-0.6); Monocytes Percent Auto 8.6 % (2.6-8.5); Neutrophils Percent Auto 64.3 % (45.5-73.1); Platelet Count Result 212 k/mm3 (150-375); Red Blood Count 3.49 M/mm3 (4.6-6.20); Red Cell Distribution Width 14.5 % (11.5-14.5); White Blood Count 6.2 K/mm3 (4.5-10.0)
[2022-03-18 14:38] LABS: Add Urine Microscopic? YES; Appearance Urine Clear (Clear); Bilirubin Urine Negative (Negative); Blood Urine Negative (Negative); Color Urine Yellow (Yellow); Glucose Urine UA Negative (Negative); Ketones Urine Negative (Negative); Leukocyte Esterase Ur Negative LEU/UL (NEGATIVE); Mucus Urine Rare /lpf; Nitrate Urine Negative (Negative); Protein Urine 2+ mg/dL (Negative); Specific Grav Ur 1.019 (1.001-1.035); Squamous Epithelial Cell Urine Rare /hpf (Few); WBC Urine 0-3 /hpf (0-3)
[2022-03-18 15:03] LABS: Alanine Aminotransferase 14 U/L (4-50); Alkaline Phosphatase 133 U/L (38-126); Anion Gap 5 mmol/L (8-16); Aspartate Amino Transferase 26 U/L (17-59); Bilirubin,Total 0.6 mg/dL (0.2-1.3); Blood Urea Nitrogen 30 mg/dL (9-20); Calcium 8.5 mg/dL (8.4-10.2); Carbon Dioxide 24 mmol/L (22-30); Chloride 107 mmol/L (98-107); Estimated Glomerular Filt Rate 38; Glucose 94 mg/dL (65-110); NT Pro B Type Natriuretic Pept 1120 pg/mL (5-100); Potassium 4.6 mmol/L (3.4-5.0); Sodium 136 mmol/L (137-145)
== END 2022-03-18 13:57 | disposition home or self-care (01) ==
LOC: ANHLAB 14:04
PROVIDERS: PCP Family Medicine; Visit Provider Physician Assistant
DX: I13.0 Hypertensive heart and chronic kidney disease with heart failure and stage 1 through stage 4 chronic kidney disease, or unspecified chronic kidney disease (principal); N18.9 Chronic kidney disease, unspecified; R60.0 Localized edema; I50.9 Heart failure, unspecified
CPT/HCPCS: 36415; 80053; 81001; 83880; 84443; 85025

== ENCOUNTER 2022-09-09 14:30 | Outpatient (CLI) | payer MEDICARE, SELFPAY ==
[2022-09-09 15:44] LABS: Basophils Absolute Auto 0.1 K/mm3 (0.0-0.1); Basophils Percent Auto 0.7 % (0.2-1.2); Eosinophils Absolute Auto 0.1 K/mm3 (0-0.3); Eosinophils Percent Auto 1.1 % (0-4.4); Hematocrit 32.5 % (42.0-52.0); Hemoglobin 10.3 g/dL (14.0-18.0); Immature Granulocyte Absolute 0.03 K/mm3 (0.00-0.031); Immature Granulocyte Percent A 0.4 % (0-0.5); Lymphocytes Absolute Auto 1.37 K/mm3 (0.9-3.2); Lymphocytes Percent Auto 18.4 % (18.3-44.2); Mean Corpuscular HGB Conc 31.7 g/dl (32-36); Mean Corpuscular Hemoglobin 28.1 pg (26-34); Mean Corpuscular Volume 88.8 fl (80-100); Mean Platelet Volume 10.8 fl (7.4-10.4); Monocytes Absolute Auto 0.6 K/mm3 (0.1-0.6); Monocytes Percent Auto 7.4 % (2.6-8.5); Neutrophils Absolute Auto 5.4 K/mm3 (1.3-6.7); Platelet Count Result 198 k/mm3 (150-375); Red Blood Count 3.66 M/mm3 (4.6-6.20); Red Cell Distribution Width 13.2 % (11.5-14.5); White Blood Count 7.5 K/mm3 (4.5-10.0)
[2022-09-09 15:55] LABS: Alanine Aminotransferase 16 U/L (6-50); Albumin Level 3.9 g/dL (3.5-5.1); Alkaline Phosphatase 133 U/L (38-126); Anion Gap 11 mmol/L (8-16); Aspartate Amino Transferase 24 U/L (17-59); Bilirubin,Total 0.4 mg/dL (0.2-1.3); Blood Urea Nitrogen 35 mg/dL (9-20); Calcium 8.8 mg/dL (8.4-10.2); Carbon Dioxide 28 mmol/L (22-30); Chloride 107 mmol/L (98-107); Cholesterol 118 mg/dL (0-200); Estimated Glomerular Filt Rate 30; Glucose 92 mg/dL (65-110); HDL Direct 57 mg/dL; Potassium 4.7 mmol/L (3.4-5.0); Sodium 146 mmol/L (137-145); Triglycerides 49 mg/dL (<150)
[2022-09-09 16:06] LABS: LDL Cholesterol Direct 31 mg/dL
[2022-09-09 16:23] LABS: Add Urine Microscopic? YES; Appearance Urine Clear (Clear); Bilirubin Urine Negative (Negative); Blood Urine 1+ (Negative); Color Urine Yellow (Yellow); Glucose Urine UA Negative (Negative); Ketones Urine Negative (Negative); Leukocyte Esterase Ur Negative LEU/UL (NEGATIVE); Mucus Urine Rare /lpf; Nitrate Urine Negative (Negative); Protein Urine 2+ mg/dL (Negative); RBC Urine 0-2 /hpf (0-2); Specific Grav Ur 1.021 (1.001-1.035); Squamous Epithelial Cell Urine Rare /hpf (Few); Urobilinogen Urine Negative mg/dL (<2.0); WBC Urine 0-3 /hpf (0-3)
[2022-09-09 17:22] LABS: Hemoglobin A1C 4.6 % (<5.7)
== END 2022-09-09 14:31 | disposition home or self-care (01) ==
PROVIDERS: PCP Family Medicine; Visit Provider Nurse Practitioner Family
DX: R73.01 Impaired fasting glucose (principal); I10 Essential (primary) hypertension; E78.2 Mixed hyperlipidemia; N18.31 Chronic kidney disease, stage 3a
CPT/HCPCS: 36415; 80053; 80061; 81001; 83036; 84443; 85025

== ENCOUNTER 2022-12-08 10:37 | Outpatient (CLI) | payer MEDICARE, MEDICAID, SELFPAY ==
[2022-12-08 11:55] LABS: Alanine Aminotransferase 18 U/L (6-50); Alkaline Phosphatase 123 U/L (38-126); Anion Gap 5 mmol/L (8-16); Aspartate Amino Transferase 26 U/L (17-59); Bilirubin,Total 0.9 mg/dL (0.2-1.3); Blood Urea Nitrogen 32 mg/dL (9-20); Calcium 8.6 mg/dL (8.4-10.2); Carbon Dioxide 23 mmol/L (22-30); Chloride 107 mmol/L (98-107); Estimated Glomerular Filt Rate 34; Glucose 82 mg/dL (65-110); Potassium 4.3 mmol/L (3.4-5.0); Sodium 135 mmol/L (137-145)
[2022-12-08 12:18] LABS: Basophils Percent Auto 0.5 % (0.2-1.2); Eosinophils Absolute Auto 0.1 K/mm3 (0-0.3); Eosinophils Percent Auto 2.1 % (0-4.4); Hematocrit 29.5 % (42.0-52.0); Hemoglobin 9.3 g/dL (14.0-18.0); Immature Granulocyte Absolute 0.03 K/mm3 (0.00-0.031); Immature Granulocyte Percent A 0.5 % (0-0.5); Lymphocytes Percent Auto 14.3 % (18.3-44.2); Mean Corpuscular HGB Conc 31.5 g/dl (32-36); Mean Corpuscular Hemoglobin 27.9 pg (26-34); Mean Corpuscular Volume 88.6 fl (80-100); Mean Platelet Volume 10.5 fl (7.4-10.4); Monocytes Absolute Auto 0.6 K/mm3 (0.1-0.6); Monocytes Percent Auto 8.7 % (2.6-8.5); Neutrophils Absolute Auto 4.7 K/mm3 (1.3-6.7); Neutrophils Percent Auto 73.9 % (45.5-73.1); Platelet Count Result 185 k/mm3 (150-375); Red Blood Count 3.33 M/mm3 (4.6-6.20); Red Cell Distribution Width 14.2 % (11.5-14.5); White Blood Count 6.3 K/mm3 (4.5-10.0)
== END 2022-12-08 10:38 | disposition home or self-care (01) ==
PROVIDERS: PCP Family Medicine; Visit Provider Family Medicine
DX: N18.9 Chronic kidney disease, unspecified (principal); D64.9 Anemia, unspecified
CPT/HCPCS: 36415; 80053; 85025

== ENCOUNTER 2023-03-02 15:04 | Outpatient (CLI) | payer MEDICARE, MEDICAID, SELFPAY ==
--- NOTE | ~2023-03-02 | XR_ITS ---
XR chest 2V 03/02/2023 15:30 Indication: Hypertension. CVA Procedure: PA and lateral views of the chest Comparison: 08/11/2021 Findings: Heart size is normal. Stable appearance to endovascular stents of the aorta. No focal air s pace disease, pulmonary edema, pleural effusion or suspected pneumothorax. Impression: 1: No acute cardiopulmonary disease. Reviewed, dictated and finalized at location B. Impression: 1: No acute cardiopulmonary disease.
[2023-03-02 15:24] LABS: Basophils Percent Auto 0.5 % (0.2-1.2); Eosinophils Absolute Auto 0.1 K/mm3 (0-0.3); Eosinophils Percent Auto 1.7 % (0-4.4); Hematocrit 31.5 % (42.0-52.0); Hemoglobin 9.9 g/dL (14.0-18.0); Immature Granulocyte Absolute 0.02 K/mm3 (0.00-0.031); Immature Granulocyte Percent A 0.3 % (0-0.5); Lymphocytes Percent Auto 16.6 % (18.3-44.2); Mean Corpuscular HGB Conc 31.4 g/dl (32-36); Mean Corpuscular Hemoglobin 28.1 pg (26-34); Mean Corpuscular Volume 89.5 fl (80-100); Mean Platelet Volume 10.2 fl (7.4-10.4); Monocytes Absolute Auto 0.6 K/mm3 (0.1-0.6); Monocytes Percent Auto 9.5 % (2.6-8.5); Neutrophils Absolute Auto 4.3 K/mm3 (1.3-6.7); Neutrophils Percent Auto 71.4 % (45.5-73.1); Platelet Count Result 170 k/mm3 (150-375); Red Blood Count 3.52 M/mm3 (4.6-6.20); Red Cell Distribution Width 13.3 % (11.5-14.5)
[2023-03-02 15:34] LABS: Alanine Aminotransferase 22 U/L (6-50); Albumin Level 4.4 g/dL (3.5-5.1); Alkaline Phosphatase 151 U/L (38-126); Anion Gap 10 mmol/L (8-16); Aspartate Amino Transferase 26 U/L (17-59); Bilirubin,Total 0.8 mg/dL (0.2-1.3); Blood Urea Nitrogen 35 mg/dL (9-20); Calcium 8.5 mg/dL (8.4-10.2); Carbon Dioxide 24 mmol/L (22-30); Chloride 105 mmol/L (98-107); Estimated Glomerular Filt Rate 28; Glucose 93 mg/dL (65-110); Potassium 4.7 mmol/L (3.4-5.0); Sodium 139 mmol/L (137-145)
[2023-03-02 15:43] LABS: NT Pro B Type Natriuretic Pept 1850 pg/mL (19.9-100)
[2023-03-02 15:53] LABS: Iron 45 ug/dL (49-181)
[2023-03-02 16:03] LABS: Percent Iron Saturation 16 % (20-50)
[2023-03-02 16:40] LABS: Folic Acid 9.4 ng/mL (2.76->20)
== END 2023-03-02 15:05 | disposition home or self-care (01) ==
PROVIDERS: PCP Family Medicine; Visit Provider Physician Assistant
DX: D64.9 Anemia, unspecified (principal); I12.9 Hypertensive chronic kidney disease with stage 1 through stage 4 chronic kidney disease, or unspecified chronic kidney disease; I50.9 Heart failure, unspecified; K25.9 Gastric ulcer, unspecified as acute or chronic, without hemorrhage or perforation; N18.31 Chronic kidney disease, stage 3a; R09.89 Other specified symptoms and signs involving the circulatory and respiratory systems
CPT/HCPCS: 36415; 71046; 80053; 82607; 82728; 82746; 83540; 83550; 83880; 84443; 85025

== ENCOUNTER 2023-06-13 14:43 | Outpatient (CLI) | payer MEDICARE, MEDICAID, SELFPAY ==
--- NOTE | 2023-06-13 14:31 | ECHO_ITS ---
Patient Info Name: Ulices Willingham Age: 68 years : 1955 Gender: Male Ht: 71 in Wt: 220 lbs BSA: 2.26 m2 HR: 78 bpm BP: 165 / 90 mmHg Technical Quality: Fair Exam Date: 06/13/2023 3:10 PM Exam Location: [facility] Patient Status: Outpatient Admit Date: 06/13/2023 Staff Ordering Physician: Sami Montes De Oca DO Photonics Engineer: Sue Winston RDCS Attending Provider: Sami Montes De Oca DO Referring Physician: Tavon BLANCO; Exam Type: CA echo doppler color flow Study Info Indications - nonrheumatic aortic insufficiency Complete two-dimensional, color flow and Doppler transthoracic echocardiogram is performed. Summary 1. Complete two-dimensional, color flow and Doppler transthoracic echocardiogram is performed. 2. Left ventricular chamber dimension is normal. 3. Left ventricular systolic function is normal, estimated at 60-65%. 4. There is mild concentric increased left ventricular wall thickness. 5. The left ventricular diastolic function is grade I diastolic dysfunction. 6. E/e' 15 is elevated. 7. Global longitudinal strain is normal at -17.6%. 8. Left atrial chamber dimension is moderately enlarged. 9. There is mild aortic valve sclerosis. 10. There is moderate aortic valve regurgitation. 11. There is trace tricuspid valve regurgitation. 12. Moderate pulmonary hypertension, estimated pulmonary arterial systolic pressure is 49 mmHg. 13. There is trace pulmonic regurgitation. 14. The prox ascending aorta size is borderline dilated at 4.0 cm.. 15. Abdominal aorta with possible flap and possible abdominal aortic dissection. Consider CTA thoracic and abdominal aorta if clinically indicated. Left Ventricle Global longitudinal strain is normal at -17.6%. E/e' 15 is elevated. Left ventricular chamber dimension is normal. Left ventricular systolic function is normal, estimated at 60-65%. There is mild concentric increased left ventricular wall thickness. The left ventricular diastolic function is grade I diastolic dysfunction. Right Ventricle Right ventricular chamber dimension is normal. Right ventricular systolic function is normal. Left Atria Left atrial chamber dimension is moderately enlarged. Right Atria Right atrial chamber dimension is normal. Aortic Valve The aortic valve is trileaflet. There is mild aortic valve sclerosis. There is no aortic valve stenosis. There is moderate aortic valve regurgitation. Pulmonic Valve There is trace pulmonic regurgitation. Mitral Valve There is no mitral valve stenosis. There is no mitral valve regurgitation. Tricuspid Valve There is trace tricuspid valve regurgitation. Moderate pulmonary hypertension, estimated pulmonary arterial systolic pressure is 49 mmHg. Pericardium/Pleural There is no pericardial effusion. Inferior Vena Cava Normal inferior vena cava with >50% collapse upon inspiration consistent with normal right atrial pressure, 5 mmHg. Aorta The prox ascending aorta size is borderline dilated at 4.0 cm.. Abdominal aorta with possible flap and possible abdominal aortic dissection. Consider CTA thoracic and abdominal aorta if clinically indicated. The aortic root size at the sinus of Valsalva is normal. Left Ventricular Outflow Tract Name Value Normal LVOT 2D LVOT Diameter 2.2 cm LVOT Doppler -------
== END 2023-06-13 14:44 | disposition home or self-care (01) ==
PROVIDERS: PCP Family Medicine; Visit Provider Internal Medicine Cardiovascular Disease
DX: I08.3 Combined rheumatic disorders of mitral, aortic and tricuspid valves (principal)
CPT/HCPCS: 93306

== ENCOUNTER 2023-08-24 09:05 | Outpatient (CLI) | payer MEDICARE, MEDICAID, SELFPAY ==
[2023-08-24 09:38] LABS: Hematocrit 30.7 % (42.0-52.0); Hemoglobin 9.8 g/dL (14.0-18.0); Mean Corpuscular HGB Conc 31.9 g/dl (32-36); Mean Corpuscular Hemoglobin 28.5 pg (26-34); Mean Corpuscular Volume 89.2 fl (80-100); Mean Platelet Volume 10.5 fl (7.4-10.4); Platelet Count Result 164 k/mm3 (150-375); Red Blood Count 3.44 M/mm3 (4.6-6.20); Red Cell Distribution Width 13.2 % (11.5-14.5)
[2023-08-24 09:56] LABS: Anion Gap 6 mmol/L (8-16); Blood Urea Nitrogen 34 mg/dL (9-20); Calcium 8.5 mg/dL (8.4-10.2); Carbon Dioxide 25 mmol/L (22-30); Chloride 107 mmol/L (98-107); Estimated Glomerular Filt Rate 31; Glucose 87 mg/dL (65-110); Phosphorus 3.3 mg/dL (2.5-4.5); Potassium 4.6 mmol/L (3.4-5.0); Sodium 138 mmol/L (137-145)
[2023-08-24 10:09] LABS: Parathyroid Intact 137.5 pg/mL (7.5-53.5)
[2023-08-24 10:19] LABS: Creatinine Urine 217.5 mg/dL
[2023-08-24 10:44] LABS: Appearance Urine Clear (Clear); Bacteria Urine None Seen /hpf; Bilirubin Urine Negative (Negative); Blood Urine Negative (Negative); Color Urine Yellow (Yellow); Glucose Urine UA Negative (Negative); Ketones Urine Negative (Negative); Leukocyte Esterase Ur Negative LEU/UL (NEGATIVE); Mucus Urine Present /lpf; Nitrate Urine Negative (Negative); Protein Urine 3+ mg/dL (Negative); RBC Urine 0-2 /hpf (0-2); Specific Grav Ur 1.022 (1.001-1.035); WBC Urine 0-5 /hpf (0-3); pH Urine 5.5 (5.0-9.0)
[2023-08-24 11:13] LABS: Alanine Aminotransferase 40 U/L (6-50); Albumin Level 3.9 g/dL (3.5-5.1); Alkaline Phosphatase 111 U/L (38-126); Anion Gap 3 mmol/L (8-16); Aspartate Amino Transferase 36 U/L (17-59); Bilirubin,Total 0.7 mg/dL (0.2-1.3); Blood Urea Nitrogen 33 mg/dL (9-20); Calcium 8.5 mg/dL (8.4-10.2); Carbon Dioxide 27 mmol/L (22-30); Chloride 107 mmol/L (98-107); Cholesterol 96 mg/dL (0-200); Estimated Glomerular Filt Rate 30; Glucose 87 mg/dL (65-110); HDL Direct 53 mg/dL; Potassium 4.6 mmol/L (3.4-5.0); Sodium 137 mmol/L (137-145); Triglycerides 43 mg/dL (<150)
[2023-08-24 11:24] LABS: Vitamin D 25 Hydroxy 37.4 ng/mL
[2023-08-24 11:25] LABS: LDL Cholesterol Direct 30 mg/dL
[2023-08-24 11:33] LABS: Total Protein Urine Random 288 mg/dL; Ur Ttl Prot Creatinine Ratio 1.32 mg/mg (0-0.20)
[2023-08-24 11:44] LABS: Prostate Specific Antigen 5.1 ng/mL (< OR = 4.0)
[2023-08-24 11:50] LABS: Hyaline Casts Urine 0-2 /lpf; Squamous Epithelial Cell Urine Few /hpf (Few)
[2023-08-24 12:01] LABS: Add Urine Microscopic? YES
== END 2023-08-24 09:06 | disposition home or self-care (01) ==
LOC: ANHLAB 09:08
PROVIDERS: PCP Family Medicine; Referring Provider Internal Medicine Nephrology; Visit Provider Physician Assistant
DX: I12.9 Hypertensive chronic kidney disease with stage 1 through stage 4 chronic kidney disease, or unspecified chronic kidney disease (principal); N18.4 Chronic kidney disease, stage 4 (severe); D64.9 Anemia, unspecified; I63.9 Cerebral infarction, unspecified; R97.20 Elevated prostate specific antigen [PSA]; E55.9 Vitamin D deficiency, unspecified; N25.81 Secondary hyperparathyroidism of renal origin
CPT/HCPCS: 36415; 80053; 80061; 80069; 81001; 82306; 82570; 83970; 84153; 84156; 84443; 85027

== ENCOUNTER 2024-02-09 09:43 | Outpatient (CLI) | payer MEDICARE, MEDICAID, SELFPAY ==
--- NOTE | ~2024-02-09 | US_ITS ---
Renal-Bladder ultrasound Clinical History: Chronic kidney disease Technique: Real-time sonographic imaging of the kidneys and urinary bladder was performed. Findings: The right kidney measures 11.1 cm in length and the left kidney measures 12.1 cm. There is no hydronephrosis or renal calculus identified. Renal cortical echogenicity is increased. 3.8 cm left renal cyst present. The urinary bladder is moderately distended at the time of this exam. No intraluminal echoes are iden tified. No abnormal wall thickening is seen. Impression: Echogenic kidneys are consistent with chronic medical renal disease. No hydronephrosis. Reviewed, dictated and finalized at location . Impression: Echogenic kidneys are consistent with chronic medical renal disease. No hydronephrosis.
[2024-02-09 11:15] LABS: Albumin Level 4.4 g/dL (3.5-5.1); Anion Gap 4 mmol/L (8-16); Blood Urea Nitrogen 33 mg/dL (9-20); Calcium 9.2 mg/dL (8.4-10.2); Carbon Dioxide 27 mmol/L (22-30); Chloride 107 mmol/L (98-107); Estimated Glomerular Filt Rate 28; Glucose 64 mg/dL (65-110); Phosphorus 3.2 mg/dL (2.5-4.5); Potassium 4.4 mmol/L (3.4-5.0); Sodium 138 mmol/L (137-145)
[2024-02-09 11:26] LABS: Parathyroid Intact 162.9 pg/mL (7.5-53.5)
[2024-02-09 11:34] LABS: Creatinine Urine 112.5 mg/dL; Total Protein Urine Random 95 mg/dL; Ur Ttl Prot Creatinine Ratio 0.84 mg/mg (0-0.20)
== END 2024-02-09 09:44 | disposition home or self-care (01) ==
PROVIDERS: PCP Family Medicine; Visit Provider Internal Medicine Nephrology
DX: I12.9 Hypertensive chronic kidney disease with stage 1 through stage 4 chronic kidney disease, or unspecified chronic kidney disease (principal); N25.81 Secondary hyperparathyroidism of renal origin; N18.4 Chronic kidney disease, stage 4 (severe)
CPT/HCPCS: 36415; 76775; 80069; 82570; 83970; 84156